=== PATIENT | female | born 1945 | race Caucasian/White ===

== ENCOUNTER 2018-03-23 18:21 | Emergency (ER) | payer MEDICARE, OTHER ==
[~2018-03-23] VITALS: Ht 167.6 cm; Wt 70.8 kg
[2018-03-23] MEDS ORDERED: LEXAPRO 10 MG T10 M1 PO (18:33)
[2018-03-23] MEDS ORDERED: D3 DOTS2000 UNIT PO (18:33)
[2018-03-23] MEDS ORDERED: LOPRESSOR50 PO (18:33)
[2018-03-23] MEDS ORDERED: NORVASC5 MG PO (18:33)
[2018-03-23] MEDS ORDERED: MOBIC15 MG PO (18:33)
[2018-03-23] MEDS ORDERED: MULTIVITAMINS1 EAC7 PO (18:33)
[2018-03-23] MEDS ORDERED: OMEPRAZOLE10 MG PO (18:34)
[2018-03-23] MEDS ORDERED: BETIMOL5 ML OPHTHALMIC (18:34)
[2018-03-23] MEDS ORDERED: ACETAMINOPHEN-1 EAC1 PO (21:16)
[2018-03-23 21:42] VITALS: BP 164/66
== END 2018-03-23 21:43 | disposition home or self-care (01) ==
LOC: M.ERS 18:21
DX: S52.121A Displaced fracture of head of right radius, initial encounter for closed fracture (principal); I10 Essential (primary) hypertension; Z88.8 Allergy status to other drugs, medicaments and biological substances; W01.0XXA Fall on same level from slipping, tripping and stumbling without subsequent striking against object, initial encounter; Y93.89 Activity, other specified; Y92.89 Other specified places as the place of occurrence of the external cause; Y99.8 Other external cause status